=== PATIENT | female | born 1965 ===

== ENCOUNTER 2024-04-29 06:26 | Day surgery (SDC) | payer OTHER ==
[~2024-04-29] VITALS: Ht 170.2 cm; Wt 79.8 kg
[~2024-04-29 06:26] MED LIST: COZAAR25 MG PO; HUMULIN 70100 UNIT/1
[2024-04-29] MEDS ORDERED: HEMOSTATIC MATRIX 1 KIT KIT TOP ONE (10:15)
[2024-04-29] MEDS ORDERED: DIBUCAINE 30 GM TUBE RECTAL NR (10:15)
[2024-04-29] MEDS ORDERED: METRONIDAZOLE/SODIUM CHLORIDE 500 MG/100 ML PIGGYBACK IV ONE (10:15)
[2024-04-29] MEDS ORDERED: LIDOCAINE HCL 1%/EPINEPHRINE 20ML VIAL IJ ONE (10:15)
[2024-04-29] MEDS ORDERED: BUPIVACAINE HCL 30 ML VIAL IJ ONE (10:15)
[2024-04-29] MEDS ORDERED: POVIDONE-IODINE 118 ML BOTT TOP ONE (10:15)
[2024-04-29] MEDS ORDERED: CEFTRIAXONE SODIUM 2,000 MG VIAL IV ONE (10:15)
== END 2024-04-29 16:25 | disposition home or self-care (01) ==
LOC: CIR.AMB 06:26
PROVIDERS: ATTEND Colon & Rectal Surgery
DX: C19 Malignant neoplasm of rectosigmoid junction (principal); D12.9 Benign neoplasm of anus and anal canal; D12.8 Benign neoplasm of rectum; Z86.010 Personal history of colon polyps; E11.9 Type 2 diabetes mellitus without complications; Z79.4 Long term (current) use of insulin; I10 Essential (primary) hypertension